=== PATIENT | male | born 1955 ===

== ENCOUNTER 2018-11-23 12:34 | Emergency (ER) | payer BC ==
[2018-11-23 13:10] VITALS: BMI 33.5
[2018-11-23 13:14] VITALS: O2SAT 98
--- NOTE | 2018-11-23 13:52 | C.PDOC ---
History Of Present Illness 63 y/o male with a PMHx of hypertension presents to the ED accompanied by his brother for evaluation of new-onset hiccups for 4 days. Per brother, the hiccuping has been constant. He notes the patient was hospitalized for a stroke in September, and since then he moved from [place] to reside with brother in [place]. Brother reports patient has been taking his medications (HCTZ, Lisinopril, Zantac, prostate medication) with good compliance. He is still eating and drinking normally. Denies any associated SOB, chest pain, dizziness, nausea, vomiting, or other complaints. Time Seen by Provider: 11/23/18 13:21 Chief Complaint (Nursing): Medical Clearance History Per: Patient History/Exam Limitations: no limitations Onset/Duration Of Symptoms: Days (x 4) Current Symptoms Are (Timing): Still Present Additional History Per: Family Past Medical History Reviewed: Historical Data, Nursing Documentation, Vital Signs Vital Signs: Last Vital Signs Temp 98.5 F 11/23/18 13:14 Pulse 63 11/23/18 13:14 Resp 18 11/23/18 13:14 BP 160/89 H 11/23/18 13:14 Pulse Ox 98 11/23/18 13:14 - Medical History PMH: HTN, Hypercholesterolemia Family History: States: No Known Family Hx - Social History Hx Alcohol Use: No Hx Substance Use: No - Immunization History Hx Tetanus Toxoid Vaccination: No Hx Influenza Vaccination: No Hx Pneumococcal Vaccination: No Review Of Systems Except As Marked, All Systems Reviewed And Found Negative. Constitutional: Positive for: Other (Constant hiccups). Negative for: Fever, Chills Cardiovascular: Negative for: Chest Pain, Palpitations Respiratory: Negative for: Shortness of Breath Gastrointestinal: Negative for: Nausea, Vomiting, Diarrhea Musculoskeletal: Negative for: Neck Pain, Back Pain Neurological: Negative for: Weakness, Numbness, Headache Physical Exam - Physical Exam Appears: Non-toxic, In Acute Distress (mild distress), Other (Actively hiccuping) Skin: Normal Color, Warm, No Jaundice Head: Atraumatic, Normacephalic Eye(s): bilateral: Normal Inspection (Sclera anicteric), PERRL, EOMI Oral Mucosa: Moist Neck: Normal ROM Chest: Symmetrical, No Tenderness Cardiovascular: Rhythm Regular, No Murmur Respiratory: Normal Breath Sounds, No Accessory Muscle Use, Other (NARD) Gastrointestinal/Abdominal: Soft, No Tenderness, No Distention Extremity: Bilateral: Atraumatic, Normal Color And Temperature Neurological/Psych: Oriented x3, Normal Speech ED Course And Treatment - Laboratory Results Result Diagrams: 11/23/18 14:13 11/23/18 14:13 O2 Sat by Pulse Oximetry: 98 (RA) Pulse Ox Interpretation: Normal Progress - Re-Evaluation Re-evaluation Note: 11/23/18 16:24 INITIALLY IMPROVED W THORAZINE NOW RECUR BUT NOT INTENSE. NAD 11/23/18 17:05 SP REGLAN IMPROVED. ADVISED NEED FOR GI/PMD FU - Data Reviewed Data Reviewed: Lab, Diagnostic imaging Medical Decision Making Medical Decision Making: Impression: Hiccups Plan: - Labs - CT Abdomen/Pelvis without contrast - 50 mg IM Chlorpromazine - Reassess Disposition Counseled Patient/Family Regarding: Studies Performed, Diagnosis, Need For Followup, Rx Given - Disposition Referrals: Bennett Cunha MD [Staff Provider] - YOUR,PMD [Other] Disposition: HOME/ ROUTINE Disposition Time: 17:06 Condition: IMPROVED Additional Instructions: FOLLOW UP WITH YOUR PMD AND/OR PALLIATIVE CARE NURSE Prescriptions: Metoclopramide [Reglan] 1 tab PO TID PRN #25 tab PRN Reason: Nausea/Vomiting Instructions: Hiccups Forms: [facility] (Frisian) - Clinical Impression Clinical Impression: Intractable hiccups - Scribe Statement The provider has reviewed the documentation as recorded by the Jose Salcedo Provider Attestation: All medical record entries made by the Maryibjames were at my direction and personally dictated by me. I have reviewed the chart and agree that the record accurately reflects my personal performance of the history, physical exam, medical decision making, and the department course for this patient. I have also personally directed, reviewed, and agree with the discharge instructions and disposition.
[2018-11-23 14:15] LABS: BASO # 0.1 K/uL (0.0-0.2); BASO % 0.7 % (0.0-2.0); EOS # 0.3 K/uL (0.0-0.7); EOS % 3.2 % (0.0-4.0); HEMOGLOBIN 12.2 g/dL (12.0-18.0); LYMPH # 1.4 K/uL (1.0-4.3); LYMPH % 18.1 % (20.0-40.0); MEAN CELL VOLUME 94.8 fL (80.0-94.0); MEAN CORPUSCULAR HEMOGLOBIN 32.1 pg (27.0-31.0); MEAN CORPUSCULAR HGB CONC 33.9 g/dL (33.0-37.0); MEAN PLATELET VOLUME 7.9 fL (7.2-11.7); MONO # 0.7 K/uL (0.0-0.8); MONO % 8.9 % (0.0-10.0); NEUT # 5.4 K/uL (1.8-7.0); NEUT % 69.1 % (50.0-75.0); NRBC % 0.1 % (0.0-2.0); RBC 3.81 Mil/uL (4.40-5.90); RED CELL DISTRIBUTION WIDTH 13.3 % (11.5-14.5); WHITE BLOOD COUNT 7.9 K/uL (4.8-10.8)
[2018-11-23 14:29] LABS: ALB/GLOB RATIO 1.3 (1.0-2.1); ALBUMIN 4.3 g/dL (3.5-5.0); CALCIUM 9.6 mg/dl (8.6-10.4)
--- NOTE | 2018-11-23 15:55 | CT ---
PROCEDURE: CT Abdomen and Pelvis without Oral or IV contrast. HISTORY: HICCUPS COMPARISON: None available. TECHNIQUE: Contiguous axial images of the abdomen and pelvis. No oral or IV contrast administered. Coronal and Sagittal reformats generated and reviewed. Radiation dose: Total exam DLP = 1019.96 mGy-cm. This CT exam was performed using one or more of the following dose reduction techniques: Automated exposure control, adjustment of the mA and/or kV according to patient size, and/or use of iterative reconstruction technique. FINDINGS: There is limited evaluation of the solid organs without the administration of IV contrast. LOWER THORAX: No visible consolidation, pleural effusion, or pneumothorax. Distal hernia/distal esophageal wall thickening. LIVER: Unremarkable. GALLBLADDER AND BILE DUCTS: Unremarkable. PANCREAS: Unremarkable. SPLEEN: Unremarkable. ADRENALS: Unremarkable. KIDNEYS AND URETERS: No hydronephrosis or obstructing renal calculus. 2.3 cm left renal cyst. BLADDER: Urinary bladder appears mildly thick-walled, likely exaggerated by under distension. REPRODUCTIVE: The prostate gland measures approximately 4.7 x 5.3 cm. APPENDIX: The appendix appears within normal limits of caliber. No secondary signs of acute appendicitis. BOWEL: The stomach is nondistended. Lack of oral contrast limits evaluation for bowel pathology. The bowel loops appear within normal limits of caliber without evidence of intestinal obstruction. Diverticulosis without CT evidence of acute diverticulitis. PERITONEUM: No significant free fluid. No definite free air. LYMPH NODES: No bulky lymphadenopathy identified. VASCULATURE: Atherosclerotic calcifications. No aortic aneurysm. BONES: Degenerative changes of the spine. OTHER FINDINGS: None. IMPRESSION: Diverticulosis without CT evidence of acute diverticulitis. Left renal cyst. Small hiatal hernia/distal esophageal wall thickening. Additional findings as above.
[2018-11-23 17:20] VITALS: BP 120/64; PULSE 65; RESP 18; TEMP 98.3
== END 2018-11-23 17:30 | disposition home or self-care (01) ==
LOC: C.ER 12:34
DX: R06.6 Hiccough (principal)
CPT/HCPCS: 74176; 80053; 83690; 85025; 96372; 96374; 99283; J2765; J3230